=== PATIENT | female | born 1990 | race Caucasian/White ===

== ENCOUNTER 2024-06-01 08:17 | Emergency (ER) | payer BC, SELFPAY ==
[2024-06-01 08:24] VITALS: BP 131/74
[2024-06-01 08:52] VITALS: BMI 20.2
[2024-06-01 09:20] VITALS: BP 120/70
[2024-06-01] MEDS: ANESTHETIC LOZENGE 1 LOZENGE PO (09:33)
[2024-06-01] MEDS: XYLOCAINE VISCOUS CUP 15 ML PO (09:33)
--- NOTE | 2024-06-01 09:34 | ED.GENMED ---
History of Present Illness
General
Chief Complaint: Throat Problem
Source: patient
Time Seen by Provider: 06/01/24 09:05
History of Present Illness
History of Present Illness:
33-year-old female with past medical history of migraines presenting to the emergency department for evaluation of 6 days of cold/flulike symptoms including sore throat, fevers, nasal congestion and now noting a couple of erythematous bumps on both
hands and her left foot. Patient states that during the holidays she did come in contact with family member who has suspected kvey-nuva-yur-mouth infection. Patient states she was recently traveling related to work and went to an urgent care who
tested her for COVID, flu, RSV and strep with all test coming back negative. She was started on Augmentin on Wednesday for possible strep infection and has had 2 full days of this but without any improvement. Patient has yet to take any medications
this morning. Denies any drooling or spitting, no abdominal pain, urinary symptoms, cough or any other concerns.
Past History
Past History
ED Past Medical History: Other (Migraines)
ED Past Surgical History: None
Social History
Tobacco: Non-smoker
Alcohol: None
Drug: None
Personal:
Living: with family
Employment: Employed
Review of Systems
Review of Systems
All Other Systems: ROS reviewed and negative except as documented in HPI and ROS
Phy Exam
Physical Exam
Physical Exam:
GENERAL: Alert , in no apparent distress
HEAD: NCAT
EYE: conjunctiva clear
NECK: Supple, no significant adenopathy.
ENT: o/p clr, mmm. posterior oropharynx has multiple small vesicles along the tonsils. no tonsillar edema/exudates, uvula midline without any edema. Tolerating secretions, no trismus or stridor
CARDIAC: Regular rate and rhythm
LUNGS: Clear breath sounds bilaterally, no acute respiratory distress, no wheezes/rales/rhonchi
NEUROLOGICAL: Alert and oriented
SKIN: Warm and dry, small scattered erythematous papules on b/l hands and on left 2nd toe
MUSCULOSKELETAL: well perfused.
PSYCH: Normal and appropriate interaction.
Scores
Heart Failure Risk
Heart Failure Risk Score: Not Applicable
Heart Score for Chest Pain Patients
STEMI patient?: Not applicable
Withdrawal Assessment of Alcohol
Withdrawal Assessment Completed?: Not applicable
Course
Orders/Labs/Results
Orders:
Orders
06/01/24 09:19
Benzocaine/Menthol [Anesthetic Lozenge] 1 lozenge PO NOW STA
Viscous Lidocaine 2% [Xylocaine Viscous Cup] 15 ml PO NOW STA
06/01/24 09:20
Test Result ONCE
06/01/24 09:27
Complete Blood Count/With Diff Urgent
Comprehensive Metabolic Panel Urgent
HCG, Serum Qualitative Screen Urgent
Monotest Urgent
06/01/24 10:24
Ketorolac [Toradol] 30 mg IV NOW STA
Abnormal Lab Results
06/01/24
09:27
MPV 12.4 H fL
(7.4-10.4)
Absolute Monos (auto) 1.2 H 10^3/uL
(0.1-0.6)
Lymphocytes % 14.4 L %
(20.5-51.1)
Monocytes % 13.3 H %
(1.7-9.3)
06/01/24 09:27
06/01/24 09:27
Vital Signs
Initial and Last Documented VS:
Initial Vital Signs
Temp Pulse Resp BP Pulse Ox
98.8 F 94 18 131/74 99
06/01/24 08:24 06/01/24 08:24 06/01/24 08:24 06/01/24 08:24 06/01/24 08:24
Last Documented Vital Signs
Temp Pulse Resp BP Pulse Ox
98.8 F 91 15 114/71 96
06/01/24 08:24 06/01/24 10:05 06/01/24 10:05 06/01/24 11:00 06/01/24 11:15
MDM/Problems Addressed
Differential Diagnosis Includes:
Hand/foot/mouth, less concern for covid/flu/rsv/strep given negative tests two days ago, mono, GEM CUTTER/retropharyngeal abscess considered however given the bilateral nature of symptoms and vesicles I am a little less concern for this as well
MDM/Problems Addressed:
33-year-old female presenting to the ER for evaluation of persistent sore throat, fever and now with small erythematous papules to bilateral hands and left foot in the setting of recent exposure to known qfzd-ztne-ngz-mouth. I do suspect
higx-kywl-nrh-mouth is the most likely diagnosis however given persistent symptoms will check labs including monotest. Discussed with patient and significant other risk first benefit of CT imaging to evaluate for possible peritonsillar
abscess/retropharyngeal abscess and at this time they ultimately decided to defer the CAT scan. Will treat symptoms with viscous lidocaine and Cepacol lozenge.
*Pulse Oximetry
Patient hypoxic: no
*Critical Care Note
Total Time (30-74mins, 75-104mins- exclusive of procedures): Not Applicable
Patient Management
Escalation/DeEscalation of care consider admission/obs:
Patient had minimal relief with the Cepacol lozenge and viscous lidocaine so was treated with additional Toradol. She did note relief with the Toradol. At this time I still suspect patient's symptoms are viral in nature. Continue supportive care.
Aware of return precautions. She will she was prescribed 2 days ago.
ED Attending Note
-
Portions of this chart may have been created with voice recognition software.� Occasional wrong word or��sound alike� substitutions may have occurred due to the inherent limitations of voice recognition software.
Discharge Plan
Departure
Patient Disposition: Home (Routine Discharge)
Date of Disposition: 06/01/24
Time of Disposition: 11:07
Patient with high blood pressure during this ER visit?: No
Discharge Problem:
Pharyngitis
Instructions: Sore Throat, Adult (DC)
Prescriptions:
New
methylprednisolone [Medrol (Chris)] 4 mg tablets,dose pack
4 mg PO DIRECTED Qty: 21 0RF
Referrals:
UNKNOWN - PT DOES,NOT KNOW [Family Provider] -
Interventions
Interventions:
*Risk Screen - Suicide Last Done: 06/01/24 08:31
*Neglect/Abuse Screening Last Done: 06/01/24 08:31
*ED COVID-19 Vaccine History Last Done: 06/01/24 08:54
*Nursing Disposition Last Done: 06/01/24 11:25
ED-EENT Assessment Last Done: 06/01/24 08:54
ED- Pulmonary Assessment Last Done: 06/01/24 08:54
Discharge Date and Time
Discharge Date/Time: 06/01/24 11:25
Print Language: MOHAWK
[2024-06-01 09:56] LABS: % Basophils 0.2 % (0-2); % Eosinophils 1.8 % (0-6); % Immature Granulocytes 0.2 % (0-0.5); % Lymphocytes 14.4 % (20.5-51.1); % Monocytes 13.3 % (1.7-9.3); % Neutrophils 70.1 % (42.2-75.2); Absolute Eosinophils 0.2 10^3/uL (0-0.7); Absolute Lymphocytes 1.3 10^3/uL (1.2-3.4); Absolute Monocytes 1.2 10^3/uL (0.1-0.6); Absolute Neutrophils 6.1 10^3/uL (1.4-6.5); Hematocrit 37.6 % (37.0-47.0); Hemoglobin 12.7 g/dL (12.0-16.0); Mean Corp Hgb Conc. 33.8 g/dL (33.0-37.0); Mean Corpuscular Hgb 29.5 pg (27.0-31.0); Mean Corpuscular Volume 87.2 fL (81.0-99.0); Mean Platelet Volume 12.4 fL (7.4-10.4); Nucleated Red Blood Cells % 0 %; Platelet Count 148 10^3/uL (130-400); Red Blood Cell Count 4.31 10^6/uL (4.20-5.40); White Blood Cell Count 8.7 10^3/uL (4.8-10.8)
[2024-06-01 10:00] VITALS: BP 119/76
[2024-06-01 10:05] VITALS: BP 119/76
[2024-06-01 10:13] LABS: HCG, Serum Qualitative Screen Negative
[2024-06-01 10:14] LABS: ALT (SGPT) 21 U/L (0-35); AST (SGOT) 28 U/L (14-36); Albumin 4.4 g/dl (3.5-5.0); Alkaline Phosphatase 64 U/L (38-126); Blood Urea Nitrogen 11 mg/dl (7-17); Calcium 9.1 mg/dl (8.4-10.2); Carbon Dioxide 25 mmol/L (22-30); Chloride 104 mmol/L (98-107); Estimated Creatinine Clearance 119 ml/min; Glucose 96 mg/dl (70-99); Sodium 137 mmol/L (135-145); Total Bilirubin 0.3 mg/dl (0.2-1.3); Total Protein 7.1 g/dl (6.3-8.2); eGFR > 60.00
[2024-06-01] MEDS: TORADOL 30 MG IV (10:30)
[2024-06-01 11:00] VITALS: BP 114/71
[2024-06-01 11:03] LABS: Monotest Negative (Negative)
--- NOTE | 2024-06-01 11:22 | EDRN ---
Lucie Adams PA in to see pt.
== END 2024-06-01 11:25 | disposition home or self-care (01) ==
LOC: EMR 08:17
PROVIDERS: Physician Assistant Medical; EMERGENCY PHYSICIAN Emergency Medicine
DX: J02.9 Acute pharyngitis, unspecified (principal); L53.9 Erythematous condition, unspecified; G43.909 Migraine, unspecified, not intractable, without status migrainosus
CPT/HCPCS: 99284; 96374; 80053; 84703; 85025; 86308